=== PATIENT | female | born 1940 | race Caucasian/White ===

== ENCOUNTER → 2021-03-01 14:50 | Outpatient (BNVA) | payer SELFPAY | PROVIDERS: Family Provider Nurse Practitioner Family; PCP Nurse Practitioner Family; Visit Provider Nurse Practitioner Family | DX: R06.02 Shortness of breath (principal); I70.0 Atherosclerosis of aorta | CPT/HCPCS: 71046 ==

== ENCOUNTER 2023-03-30 12:57 | Outpatient (CLI) | payer OTHER, SELFPAY ==
--- NOTE | 2023-03-30 13:27 | CT_ITS ---
WS: [id number] CT NECK TECHNIQUE: Noncontrast CT of the neck with coronal and sagittal reformatted images. CLINICAL INFORMATION: CENTRAL RETINAL ARTERY OCCLUSION COMPARISON: None. DLP: 129.[address] scans at [facility] use at least one of these dose optimization techniques: automated e xposure control; mA and/or kV adjustment per patient size (includes targeted exams where dose is matc hed to clinical indication); or iterative reconstruction. FINDINGS: Noncontrast CT neck. 2 calculi in the LEFT submandibular duct measuring 3 to 3.5 mm. Hypoplastic or a trophic LEFT submandibular gland. Normal noncontrast RIGHT submandibular gland. Noncontrast parotid g lands appear normal. Cavernous carotid calcification. Opacification with inspissated secretions LEFT maxillary sinus. Mucosal thickening LEFT ethmoid air cells. Visualized paranasal sinuses otherwise well aerated. Mastoid air cells are well aerated. Normal poste rior nasopharynx. Normal parapharyngeal fat. No evidence of supraglottic or glottic mass. Normal subg lottic airway. Aortic calcification. Fibrosis in the lung apices. Moderate to advanced spondylitic changes cervical spine C4-C6. Mild to moderate central canal stenosi s at these levels with disc osteophyte complexes. Grade 1 anterolisthesis C7 on T1. No cervical lymph adenopathy. Small 5 mm low-attenuation RIGHT thyroid nodule. No other suspicious findings. . IMPRESSION: 1. Inspissated secretions LEFT maxillary sinus with complete opacification. 2. Mastoid air cells well aerated. 3. No evidence of supraglottic or glottic mass. 4. No cervical lymphadenopathy. 5. Small calculi in the LEFT submandibular duct. LEFT submandibular gland appears atrophic or may manuel ve been previously resected. No visualized surgical clips. 6. Moderate to advanced spondylitic changes cervical spine C4-C6 with mild to moderate central canal stenosis. Grade 1 anterolisthesis C7 on T1.
--- NOTE | 2023-03-30 13:45 | USCV_ITS ---
Ruby Lindquist Age: 83 Gender: F : 1940 Exam Date: 03/30/2023 14:39 Ordering Phys: CELY BALDERAS Technologist: Garrison Trotter Exam Location: [facility] – [place] Indication: renal artery occlusion BP: 130 / 75 HR: 71 Rhythm: Sinus Technical Quality: Adequate MEASUREMENTS (Male / Female) Normal Values 2D ECHO LV Diastolic Diameter PLAX 3.5 cm 4.2 - 5.9 / 3.9 - 5.3 cm LV Systolic Diameter PLAX 1.8 cm IVS Diastolic Thickness 1.2 cm 0.6 - 1.0 / 0.6 - 0.9 cm IVS Systolic Thickness 1.7 cm LVPW Diastolic Thickness 1.0 cm 0.6 - 1.0 / 0.6 - 0.9 cm LVPW Systolic Thickness 1.5 cm LVOT Diameter 2.0 cm LV Ejection Fraction 2D Teich 81.9 % LV Ejection Fraction MOD 2C 79.3 % LV Ejection Fraction 2C AL 79.6 % LA Diameter 3.8 cm IVC Diameter 1.2 cm M-MODE Aortic Annulus Diameter 3.1 cm LA Ao Ratio MM 1.3 MV E Point Septal Separation 0.6 cm DOPPLER AV Peak Velocity 405.5 cm/s LVOT Peak Velocity 109.0 cm/s AV Area Cont Eq vti 0.9 cm squared AV Area Cont Eq pk 0.9 cm squared MV Area PHT 2.4 cm squared Mitral E to A Ratio 1.1 MV E' Velocity 85.0 cm/s Mitral E to MV E' Ratio 22.5 Mitral E to LV E' Lateral Ratio 20.8 Mitral E to LV E' Septal Ratio 24.6 TR Peak Velocity 255.3 cm/s TR Peak Gradient 26.1 mmHg TV Peak E Velocity 56.0 cm/s RV Acceleration Time 0.1 s FINDINGS Left Ventricle Left ventricle is normal in size. LV systolic function is normal with EF of 65 to 70%. No regional wall motion abnormalities are seen. Right Ventricle Normal in size and function Right Atrium Normal in size Left Atrium Normal in size Mitral Valve Moderate to severe mitral annular calcification is seen. Mild mitral regurgitation Aortic Valve Aortic valve is thickened and calcified. Moderate aortic regurgitation. Moderate to severe aortic stenosis with aortic valve area 1.02 cm squared and mean gradient across aortic valve of 31 mmHg. Tricuspid Valve Mild tricuspid regurgitation. RVSP is 40 to 45 mmHg. This is consistent with mild pulmonary hypertension. Pulmonic Valve Not well-visualized Pericardium Normal Aorta Normal in size IVC Normal in size CONCLUSIONS LV systolic function is normal with EF of 65 to 70%. Mild mitral regurgitation Moderate aortic regurgitation Moderate to severe aortic stenosis Mild tricuspid regurgitation Mild pulmonary hypertension No comparison studies are available. Aldo Camarillo MD (Electronically Signed) Final Date: 11 April 2023 14:39 S
--- NOTE | 2023-03-30 14:30 | USCV_ITS ---
Ruby Lindquist Age: 83 Gender: F : 1940 Exam Date: 03/30/2023 14:54 Ordering Phys: CELY BALDERAS Technologist: [place] [facility] [place]: retinal occlusion Risk Factors: Unknown Previous Vascular Surgery: None Right Brachial BP: / Left Brachial BP: / Right Left Velocity (cm/s) Spectral Plaque Velocity (cm/s) Spectral Plaque Syst/Diast Broadening Syst/Diast Broadening 61.60/ 7.80 Prox CCA 68.70 / 7.30 53.70/ 9.70 Mid CCA 62.40 / 6.20 49.30/ 8.10 Distal CCA 64.50 / 8.30 86.00/ 13.20 Prox ICA 86.30 / 9.40 132.30/17.60 Mid ICA 87.40 / 14.60 115.50/16.60 Distal ICA 86.30 / 14.60 87.10 ECA 110.30 2.15 ICA/CCA 1.27 Antegrade Vertebral Antegrade 78.00/ 11.40 cm/s 67.60/ 11.40 cm/s Tri Subclavian Tri 66.60 74.90 FINDINGS Comparison: none available. Diffuse bilateral scattered calcified plaque and intimal thickening throughout the common carotid arteries and extending through the bifurcation. Mild elevation of right ICA systolic velocities. Antegrade vertebral arteries. CONCLUSIONS Bilateral ICA stenosis less than 50%. Mild diffuse carotid atherosclerosis. Dr. Esha Mcneill DO (Electronically Signed) Final Date: 31 March 2023 09:07 S
== END 2023-03-30 12:58 | disposition home or self-care (01) ==
PROVIDERS: Family Provider Nurse Practitioner Family; Visit Provider Family Medicine
DX: H34.11 Central retinal artery occlusion, right eye (principal); I65.23 Occlusion and stenosis of bilateral carotid arteries
CPT/HCPCS: 70490; 93306; 93880